=== PATIENT | male | born 1970 | race Caucasian/White ===

== ENCOUNTER 2022-10-15 18:40 | Inpatient (IN) | payer OTHER, SELFPAY ==
[~2022-10-15] VITALS: Ht 170.2 cm; Wt 77.5 kg
[2022-10-15] MEDS ORDERED: ACETAMINOPHEN 500 MG TABLET PO ONE (19:00)
[2022-10-15] MEDS ORDERED: KETOROLAC TROMETHAMINE 30 MG/ML VIAL IVP ONE (19:00)
[2022-10-15] MEDS ORDERED: ONDANSETRON HCL 4 MG/2 ML VIAL IVP ONE (19:00)
[2022-10-15 19:16] LABS: BASOPHILS % (AUTO) 0.3 % (0.0-2.0); EOSINOPHILS % (AUTO) 0.1 % (1.0-6.0); HEMATOCRIT 40.8 % (41-53); HEMOGLOBIN 13.6 g/dL (13.5-17.5); LYMPHOCYTES % (AUTO) 13.3 % (22.0-44.0); MEAN CORPUSCULAR HEMOGLOBIN 28.1 pg (26.0-34.0); MEAN CORPUSCULAR HGB CONC 33.4 G/dL (31.0-37.0); MEAN CORPUSCULAR VOLUME 84 fL (80-100); MONOCYTES # (AUTO) 0.3 K/uL (0.1-1.0); MONOCYTES % (AUTO) 4.6 % (2.0-9.0); NEUTROPHILS % (AUTO) 81.7 % (40.0-70.0); PLATELET COUNT (AUTO) 334 K/uL (150-450); RED BLOOD CELL COUNT(AUTO) 4.85 MIL/uL (4.50-5.90); RED CELL DISTRIBUTION WIDTH 13.7 % (11.5-14.5)
[2022-10-15 19:25] LABS: ANION GAP 9 mmol/L (8-16); CALCIUM, TOTAL 9.5 mg/dL (8.8-10.5); CARBON DIOXIDE 28 mmol/L (22-29); CHLORIDE 101 mmol/L (98-107); CREATININE 0.77 mg/dL (0.60-1.30); GLOMERULAR FILTR. RATE CALC > 60 mL/min (>60); GLUCOSE,RANDOM 91 mg/dL (70-110); SODIUM SERUM 138 mmol/L (136-145); UREA NITROGEN, BLOOD 13 mg/dL (7-18)
[2022-10-15 19:32] LABS: ALANINE AMINOTRANSFERASE 20 U/L (12-78); ALBUMIN 3.9 g/dL (3.4-5.0); ALKALINE PHOSPHATASE 115 U/L (46-116); ASPARTATE AMINOTRANSFERASE 20 U/L (15-37); BILIRUBIN,TOTAL 0.6 mg/dL (0.1-1.0); TOTAL PROTEIN, SERUM 8.3 g/dL (6.4-8.2)
[2022-10-15] MEDS ORDERED: CloNIDine HCL 0.1 MG TABLET PO ONE (21:15)
[2022-10-15] MEDS ORDERED: SODIUM CHLORIDE 0.9% 1,000 ML IV ONE (21:15)
[2022-10-15] MEDS ORDERED: ACETAMINOPHEN 325 MG TABLET PO PRN ×2 (21:45)
[2022-10-15] MEDS ORDERED: 0.9% SODIUM CHLORIDE 10 ML SYRINGE IVP PRN (21:45)
[2022-10-15] MEDS ORDERED: ONDANSETRON HCL 4 MG/2 ML VIAL IVP PRN (21:45)
[2022-10-15] MEDS ORDERED: KETOROLAC TROMETHAMINE 15 MG/ML VIAL IVP PRN (21:45)
[2022-10-15 22:41] LABS: COVID AG,FIA SOURCE NASOPHARYNGEAL
[2022-10-15] MEDS: HEPARIN SODIUM,PORCINE 5,000 UNITS/ML VIAL SQ SCH (23:44)
[2022-10-15 23:47] VITALS: BP 153/95
[2022-10-16 04:19] VITALS: BP 140/77
[2022-10-16 07:52] LABS: BASOPHILS % (AUTO) 0.8 % (0.0-2.0); HEMATOCRIT 38.2 % (41-53); LYMPHOCYTES # (AUTO) 1.2 K/uL (1.0-4.8); LYMPHOCYTES % (AUTO) 19.2 % (22.0-44.0); MEAN CORPUSCULAR HEMOGLOBIN 28.3 pg (26.0-34.0); MEAN CORPUSCULAR VOLUME 83 fL (80-100); MONOCYTES # (AUTO) 0.4 K/uL (0.1-1.0); MONOCYTES % (AUTO) 6.5 % (2.0-9.0); NEUTROPHILS # (AUTO) 4.5 K/uL (1.8-7.7); NEUTROPHILS % (AUTO) 72.5 % (40.0-70.0); PLATELET COUNT (AUTO) 289 K/uL (150-450); RED BLOOD CELL COUNT(AUTO) 4.58 MIL/uL (4.50-5.90); RED CELL DISTRIBUTION WIDTH 13.4 % (11.5-14.5)
[2022-10-16 07:57] VITALS: BP 130/80
[2022-10-16] MEDS: HEPARIN SODIUM,PORCINE 5,000 UNITS/ML VIAL SQ SCH (08:00)
[2022-10-16 08:12] LABS: ALANINE AMINOTRANSFERASE 21 U/L (12-78); ALBUMIN 3.1 g/dL (3.4-5.0); ALKALINE PHOSPHATASE 97 U/L (46-116); ANION GAP 7 mmol/L (8-16); ASPARTATE AMINOTRANSFERASE 19 U/L (15-37); BILIRUBIN,TOTAL 0.5 mg/dL (0.1-1.0); CALCIUM, TOTAL 8.5 mg/dL (8.8-10.5); CARBON DIOXIDE 26 mmol/L (22-29); CHLORIDE 104 mmol/L (98-107); CREATININE 0.75 mg/dL (0.60-1.30); GLOMERULAR FILTR. RATE CALC > 60 mL/min (>60); GLUCOSE,RANDOM 90 mg/dL (70-110); POTASSIUM 3.8 mmol/L (3.5-5.1); SODIUM SERUM 137 mmol/L (136-145); UREA NITROGEN, BLOOD 15 mg/dL (7-18)
[2022-10-16] MEDS ORDERED: DOCUSATE SODIUM 100 MG CAPSULE PO SCH (09:00)
[2022-10-16] MEDS: ONDANSETRON HCL 4 MG/2 ML VIAL IVP PRN (13:04)
[2022-10-16 16:20] VITALS: BP 126/81
[2022-10-16] MEDS: FAMOTIDINE 20 MG TABLET PO SCH ×2 (16:25→20:17)
[2022-10-16] MEDS: PredniSONE 20 MG TABLET PO SCH (16:25)
[2022-10-16] MEDS: DiphenhydrAMINE HCL 25 MG CAPSULE PO SCH ×2 (16:25→20:17)
[2022-10-16 20:14] VITALS: BP 143/97
[2022-10-17] VITALS (7 sets, daily range): BP systolic 128–146; BP diastolic 80–99
[2022-10-17] MEDS: PredniSONE 20 MG TABLET PO SCH (09:02)
[2022-10-17] MEDS: DiphenhydrAMINE HCL 25 MG CAPSULE PO SCH ×2 (09:02→20:17)
[2022-10-17] MEDS: FAMOTIDINE 20 MG TABLET PO SCH ×2 (09:02→20:17)
[2022-10-17] MEDS ORDERED: IBUPROFEN 600 MG TABLET PO PRN (10:30)
[2022-10-17] MEDS ORDERED: HydrOXYzine PAMOATE 50 MG CAPSULE PO PRN (10:30)
[2022-10-17] MEDS ORDERED: PROMETHAZINE HCL 25 MG TABLET PO PRN (10:30)
[2022-10-17] MEDS ORDERED: LORazepam 1 MG TABLET PO PRN (10:30)
[2022-10-17] MEDS ORDERED: TraZODone HCL 50 MG TABLET PO PRN (10:30)
[2022-10-17] MEDS ORDERED: DICYCLOMINE HCL 10 MG CAPSULE PO PRN (10:30)
[2022-10-17] MEDS ORDERED: BACLOFEN 10 MG TABLET PO PRN (10:30)
[2022-10-17] MEDS ORDERED: ACETAMINOPHEN 325 MG TABLET PO PRN (10:30)
[2022-10-17] MEDS ORDERED: LOPERAMIDE HCL 2 MG/15 ML SUSPENSION UDCUP PO PRN (10:30)
[2022-10-17] MEDS ORDERED: MAG HYDROX/AL HYDROX/SIMETH ES 30 ML SUSPENSION UDCUP PO PRN (10:30)
[2022-10-17] MEDS: SODIUM CHLORIDE 0.45% 1,000 ML IV SCH ×2 (13:22→23:39)
[2022-10-17] MEDS: CloNIDine HCL 0.1 MG TABLET PO SCH ×2 (15:50→23:57)
[2022-10-17] MEDS: ONDANSETRON HCL 4 MG/2 ML VIAL IVP PRN (20:17)
[2022-10-18] VITALS (7 sets, daily range): BP systolic 137–151; BP diastolic 83–97
[2022-10-18] MEDS: FAMOTIDINE 20 MG TABLET PO SCH ×2 (08:11→21:15)
[2022-10-18] MEDS: PredniSONE 20 MG TABLET PO SCH (08:11)
[2022-10-18] MEDS: CloNIDine HCL 0.1 MG TABLET PO SCH ×3 (08:11→23:26)
[2022-10-18] MEDS: DiphenhydrAMINE HCL 25 MG CAPSULE PO SCH ×2 (08:11→21:15)
[2022-10-18] MEDS: SODIUM CHLORIDE 0.45% 1,000 ML IV SCH (13:40)
[2022-10-18] MEDS ORDERED: ALPRAZolam 0.5 MG TABLET PO PRN (14:00)
[2022-10-19 04:19] VITALS: BP 143/82
[2022-10-19 07:53] VITALS: BP 140/84
[2022-10-19] MEDS: DiphenhydrAMINE HCL 25 MG CAPSULE PO SCH (08:05)
[2022-10-19] MEDS: CloNIDine HCL 0.1 MG TABLET PO SCH (08:05)
[2022-10-19] MEDS: PredniSONE 20 MG TABLET PO SCH (08:06)
[2022-10-19] MEDS: FAMOTIDINE 20 MG TABLET PO SCH (08:06)
[2022-10-19] MEDS ORDERED: DIPH25CA85 PO ×2 (11:43)
[2022-10-19] MEDS ORDERED: FAMO20 PO (11:44)
[2022-10-19] MEDS ORDERED: PRED-554 PO (11:45)
== END 2022-10-19 12:15 | DRG 897 ==
LOC: EMS 18:52 → 6S 22:12 → 5S 10-16 19:08 → 6S 10-18 19:27
PROVIDERS: ADMIT Internal Medicine; ATTEND Internal Medicine
DX: F11.13 Opioid abuse with withdrawal (principal); B19.20 Unspecified viral hepatitis C without hepatic coma; F15.10 Other stimulant abuse, uncomplicated; Z20.822 Contact with and (suspected) exposure to COVID-19; Z87.11 Personal history of peptic ulcer disease; Z79.899 Other long term (current) drug therapy
CPT/HCPCS: 80053; 85025; 99285; G0480; J1644; J1885; J2405